=== PATIENT | male | born 1985 | race Caucasian/White ===

== ENCOUNTER 2017-08-20 06:16 | Emergency (ER) | payer BC ==
[2017-08-20] MEDS ORDERED: ONDANSETRON 4 MG/2 ML VIAL ONE (06:35)
--- NOTE | 2017-08-20 06:42 | EDPHY ---
H & P Time Seen by Provider: 08/20/17 06:40 HPI/ROS: CHIEF COMPLAINT: Diarrhea HISTORY OF PRESENT ILLNESS: Patient started having symptoms last week on Monday with multiple episodes of watery diarrhea. He took Imodium and Pepto- Bismol and seem to improve a little bit, did not have black or bloody stools and no fevers. He was doing better on Monday yesterday and worked in the [employer] using a 5 lb jackhammer and then developed left-sided back pain, thinks he" threw out my back."Back pain is left-sided and does not radiate, not associated with weakness or numbness in extremities or incontinence. Worse with certain movements including turning to the right. Started after working in the [employer]. Diarrhea reoccurred last night and this morning, multiple episodes of watery diarrhea but not associated with vomiting. Symptoms moderate to severe. Have subsided somewhat since he has been in the emergency department. No recent travel or antibiotics or hospitalization. REVIEW OF SYSTEMS: Eye: no change in vision ENT: no sore throat Cardiac: no chest pain or syncope Pulmonary: no cough or SOB Abdomen: Some abdominal discomfort but no definite pain. Musculoskeletal: HPI Skin: no rash Neuro: no headache Constitutional: no fever : no urinary symptoms A comprehensive 10 point review of systems is otherwise negative aside from elements mentioned in the history of present illness. PAST MEDICAL HISTORY: Negative Social history: Works at [employer], only occasional alcohol General Appearance: Alert and conversant, cooperative. Eyes: No scleral icterus. ENT, Mouth: Slightly dry mucous membranes. Respiratory: Normal respiratory effort, breath sounds equal, lungs are clear to auscultation. Cardiovascular: Regular rate and rhythm. Gastrointestinal: Abdomen is soft and non tender. No McBurney's point tenderness. Neurological: Alert, face symmetric, normal motor and sensory in extremities. Patellar reflexes 2+ bilaterally, negative straight leg raising bilaterally, ambulatory. Skin: Warm and dry, no rashes. Musculoskeletal: No midline spinal tenderness. Has left sided lower lumbar paraspinal muscle tenderness. Psychiatric: Not agitated. Emergency Department course/MDM: Patient presents with recurrence of diarrhea which is likely infectious in nature, but I think is unlikely to be GI bleed or Clostridium difficile or toxigenic. He has had some relief with Robaxin for his back pain and that is likely muscular without red flags to suggest he has spinal cord compromise or renal colic or vascular problem or other medical or surgical emergent cause. Hydration, check labs, continue with current treatment including Imodium as needed and muscle relaxant which he has at home. 745: Re-evaluated, labs discussed, recommended repeat check for slight abnormalities and WBC, hematocrit, calcium within the next couple of months. Smoking Status: Never smoked Constitutional: Initial Vital Signs Temperature (C) 36.7 C 08/20/17 06:20 Heart Rate 79 08/20/17 06:20 Respiratory Rate 18 08/20/17 06:20 Blood Pressure 144/98 H 08/20/17 06:20 O2 Sat (%) 98 08/20/17 06:20 O2 Delivery Mode Room Air Allergies/Adverse Reactions: No Known Allergies Allergy (Unverified 08/20/17 06:20) Medical Decision Making Differential Diagnosis: Differential for back pain considered including but not limited to spinal cord problem, cauda equina, herniated disc, renal colic, abdominal aortic aneurysm, shingles, muscular. - Data Points Laboratory Results: Laboratory Results 08/20/17 06:40 08/20/17 06:40 08/20/17 08/20/17 06:40 06:40 WBC 3.45 10^3/uL L 10^3/uL (3.80-9.50) RBC 4.56 10^6/uL 10^6/uL (4.40-6.38) Hgb 14.5 g/dL g/dL (13.7-17.5) Hct 39.5 % L % (40.0-51.0) MCV 86.6 fL fL (81.5-99.8) MCH 31.8 pg pg (27.9-34.1) MCHC 36.7 g/dL g/dL (32.4-36.7) RDW 11.5 % % (11.5-15.2) Plt Count 171 10^3/uL 10^3/uL (150-400) MPV 9.8 fL fL (8.7-11.7) Neut % (Auto) 54.1 % % (39.3-74.2) Lymph % (Auto) 27.0 % % (15.0-45.0) Finney % (Auto) 17.4 % H % (4.5-13.0) Eos % (Auto) 0.6 % % (0.6-7.6) Baso % (Auto) 0.6 % % (0.3-1.7) Nucleat RBC Rel Count 0.0 % % (0.0-0.2) Absolute Neuts (auto) 1.87 10^3/uL 10^3/uL (1.70-6.50) Absolute Lymphs (auto) 0.93 10^3/uL L 10^3/uL (1.00-3.00) Absolute Monos (auto) 0.60 10^3/uL 10^3/uL (0.30-0.80) Absolute Eos (auto) 0.02 10^3/uL L 10^3/uL (0.03-0.40) Absolute Basos (auto) 0.02 10^3/uL 10^3/uL (0.02-0.10) Absolute Nucleated RBC 0.00 10^3/uL 10^3/uL (0-0.01) Immature Gran % 0.3 % % (0.0-1.1) Immature Gran # 0.01 10^3/uL 10^3/uL (0.00-0.10) Sodium 143 mEq/L mEq/L (135-145) Potassium 4.3 mEq/L mEq/L (3.5-5.2) Chloride 107 mEq/L mEq/L (97-110) Carbon Dioxide 22 mEq/l mEq/l (22-31) Anion Gap 14 mEq/L mEq/L (8-16) BUN 20 mg/dL mg/dL (7-23) Creatinine 0.9 mg/dL mg/dL (0.7-1.3) Estimated GFR > 60 Glucose 83 mg/dL mg/dL (70-100) Calcium 8.0 mg/dL L mg/dL (8.5-10.4) Medications Given: Discontinued Medications Sodium Chloride (Ns) 1,000 mls @ 0 mls/hr IV EDNOW ONE; Wide Open PRN Reason: Protocol Stop: 08/20/17 06:59 Last Admin: 08/20/17 07:00 Dose: 1,000 mls Departure - Departure Disposition: Home, Routine, Self-Care Clinical Impression: Diarrhea Qualifiers: Diarrhea type: unspecified type Qualified Code(s): R19.7 - Diarrhea, unspecified Back pain Qualifiers: Back pain location: low back pain Chronicity: acute Back pain laterality: left Sciatica presence: without sciatica Qualified Code(s): M54.5 - Low back pain Condition: Good Instructions: Acute Diarrhea (ED), Acute Low Back Pain (ED) Additional Instructions: Continue with muscle relaxant as needed for your back pain. Return if you get worsening or severe pain or weakness or numbness in legs. Continue with Imodium as directed on the bottle as needed, unless you develops high fever or bloody stool. Continue with increasing oral fluid intake. Primary care referral is given if you're not getting better in the next 2-3 days. Please follow-up with primary care physician in the next month, consider repeating some of your labs in the next couple of months as we discussed. Referrals: Hallie Jaquez MD [Medical Doctor] - As per Instructions Abhilash Garcia MD [[facility] [place] Primary Care Provider] - As per Instructions
[2017-08-20] MEDS ORDERED: NS 1,000 ML IV ONE (06:58)
[2017-08-20 07:25] VITALS: BP 109/58
[2017-08-20 07:43] LABS: PLATELET COUNT 171 10^3/uL (150-400)
== END 2017-08-20 07:58 | disposition home or self-care (01) ==
DX: R19.7 Diarrhea, unspecified (principal); M54.5 Low back pain; E86.9 Volume depletion, unspecified
CPT/HCPCS: J2405

== ENCOUNTER → 2018-06-29 | Outpatient (CLI) | payer BC | LOC: EMCIMAGING 16:49 | PROVIDERS: ATTEND Family Medicine | DX: M25.552 Pain in left hip (principal); M54.5 Low back pain | CPT/HCPCS: 72100-PN; 73502-PN ==

== ENCOUNTER → 2018-07-13 | Outpatient (CLI) | payer BC | LOC: EMCIMAGING 14:47 | PROVIDERS: ATTEND Family Medicine | DX: M54.16 Radiculopathy, lumbar region (principal); M51.27 Other intervertebral disc displacement, lumbosacral region | CPT/HCPCS: 72148-PN ==